=== PATIENT | female | born 1950 | race African-American/Black ===

== ENCOUNTER 2025-03-14 22:19 | Emergency (ER) | payer OTHER ==
[~2025-03-14] VITALS: Ht 167.6 cm; Wt 72.0 kg
[2025-03-14 22:26] VITALS: BP 120/70; PULSE 69; RESP 16; TEMP 36.4; O2SAT 96
== END 2025-03-15 00:33 | disposition left against medical advice (07) ==
LOC: ER 22:19
DX: R55 Syncope and collapse (principal); I10 Essential (primary) hypertension
CPT/HCPCS: 93005; 99283